=== PATIENT | female | born 1945 | race Caucasian/White ===

== ENCOUNTER → 2022-04-03 | Outpatient (CLI) | payer MEDICARE ==
[~2022-04-03] MED LIST: HYDACE5 PO; HYDCHL25; LOVA40; METF500; Norco 5-325 Ta1 EACH PO
[2022-04-03 10:36] LABS: BASOPHILS ABSOLUTE AUTO 0.06 K/mm3 (0.00-0.23); BASOPHILS PERCENT AUTO 1 % (0-2); EOSINOPHILS ABSOLUTE AUTO 0.26 K/mm3 (0.00-0.68); EOSINOPHILS PERCENT AUTO 3 % (0-6); Hematocrit 42.3 % (33.0-51.0); Hemoglobin 14.4 g/dL (11.5-16.0); IMMATURE GRAN ABSOLUTE AUTO 0.03 K/mm3 (0.00-0.10); IMMATURE GRAN PERCENT AUTO 0 % (0-1); LYMPHOCYTES ABSOLUTE AUTO 2.15 K/mm3 (0.84-5.20); LYMPHOCYTES PERCENT AUTO 25 % (21-46); MONOCYTES PERCENT AUTO 6 % (4-13); Mean Corpuscular HGB 31.6 pg (26.0-34.0); Mean Corpuscular Volume 93 fL (80-100); Mean Platelet Volume 9.1 fL (9.1-12.4); NEUTROPHILS ABSOLUTE AUTO 5.51 K/mm3 (1.96-9.15); NEUTROPHILS PERCENT AUTO 65 % (41-73); Platelet Count 298 K/mm3 (150-400); RDW Coefficient Variation 13.7 % (11.7-14.2); RDW Standard Deviation 46.5 fL (35.1-46.3); Red Blood Cell Count 4.56 M/mm3 (3.80-5.20); White Blood Cell Count 8.51 K/mm3 (4.00-11.30)
[2022-04-03 10:57] LABS: Albumin, Blood 3.7 g/dL (3.4-5.0); Albumin/Globulin Ratio 0.9 (0.8-1.8); Bilirubin, Total 0.4 mg/dL (0.1-1.0); Bun/Creatinine Ratio 18.7 (12.0-20.0); Calcium, Blood 8.8 mg/dL (8.5-10.1); Creatinine, Blood 0.91 mg/dL (0.40-1.00); Globulin, Blood 4.1 g/dL (2.2-4.0); Potassium, Blood 4.4 mmol/L (3.5-5.5); Total Protein, Blood 7.8 g/dL (6.4-8.2)
== END ==
LOC: LAB SHORT 10:28
PROVIDERS: Chiropractor
DX: R07.9 Chest pain, unspecified (principal)
CPT/HCPCS: 80053; 84484; 85025; 85379

== ENCOUNTER → 2025-03-15 | Outpatient (CLI) | payer MEDICARE ==
[2025-03-15 17:40] LABS: Adenovirus F 40/41 Not Detected (NOT DETECT); Astrovirus Not Detected (NOT DETECT); Campylobacter Sp Detected (NOT DETECT); Cryptosporidium Not Detected (NOT DETECT); Cyclospora Cayetanensis Not Detected (NOT DETECT); E. Coli O157 Not Detected (NOT DETECT); Entamoeba Histolytica Not Detected (NOT DETECT); Enteroaggregative E. coli-EAEC Not Detected (NOT DETECT); Enteropathogenic E. coli-EPEC Not Detected (NOT DETECT); Enterotoxigenic E. coli-ETEC Not Detected (NOT DETECT); Giardia Lamblia Not Detected (NOT DETECT); Norovirus GI/GII Not Detected (NOT DETECT); Plesiomonas Shigelloides Not Detected (NOT DETECT); Rotavirus A Not Detected (NOT DETECT); Salmonella Sp Not Detected (NOT DETECT); Sapovirus Not Detected (NOT DETECT); Shiga Toxin-prod E. coli-STEC Not Detected (NOT DETECT); Shigella/Enteroin E. coli-EIEC Not Detected (NOT DETECT); Vibrio Cholerae Not Detected (NOT DETECT); Vibrio Sp Not Detected (NOT DETECT); Yersinia Enterocolitica Not Detected (NOT DETECT)
== END ==
LOC: LAB 13:52 → LAB SHORT 13:52
PROVIDERS: Internal Medicine
DX: K52.9 Noninfective gastroenteritis and colitis, unspecified (principal)
CPT/HCPCS: 87507

== ENCOUNTER 2025-04-26 07:57 | Day surgery (SDC) | payer MEDICARE ==
[2025-04-05 14:18] VITALS: BP 165/96
[2025-04-26] VITALS (11 sets, daily range): BP systolic 106–186; BP diastolic 57–95
[~2025-04-26] VITALS: Ht 152.4 cm; Wt 61.1 kg
[~2025-04-26 07:57] MED LIST changes: +AMLO5 PO; +Acetaminophen 500 MG Tab PO SCH; +Aspir 8181 MG PO; +CeFAZolin Sodium 2,000 MG in NS 100 ML IV SCH; +Chlorhexidine Mouth Care 15 ML UDC MT SCH; +Lactated Ringer's 1,000 ML IV SCH; +METO25ER PO; +OxyCODONE HCL 10 MG TABCR PO SCH; +Ropivacaine 0.5% HCl/Pf 123.125 MG,EPINEPHrine HCL 0.25 MG,Ketorolac Tromethamine 15 MG... INFIL SCH; +Tranexamic Acid 100 ML IV SCH; +ZOCOR20 MG PO
--- NOTE | 2025-04-26 09:22 | NUR ---
History, Chart, Medications and Allergies reviewed before start of procedure. Pre-Op teaching done. Pt verbalizes understanding. Patient confirms NPO status and agrees with scheduled surgery. PT BELONGINGS BAG PLACED UNDER BED. PT GAVE GLASSES TO SPOUSE AT BS. DENTURE CUP LABELED AND GIVEN TO TRANSMISSION OPERATOR.
[2025-04-26] MEDS ORDERED: Midazolam HCl 1MG / ML 2ML Vial ONE (10:09)
[2025-04-26] MEDS ORDERED: ePHEDrine Sulfate 50 MG/ML 1ML Injection ONE (10:35)
[2025-04-26] MEDS ORDERED: propofoL 40 ML IV ONE ×2 (10:38→11:49)
[2025-04-26] MEDS ORDERED: FentaNYL Citrate 50 MCG/ML 2 ML Injection IV PRN ×3 (11:05)
[2025-04-26] MEDS ORDERED: HYDROmorphone HCl/Pf 1MG SYR IV PRN ×2 (11:05→11:20)
[2025-04-26] MEDS ORDERED: Ondansetron HCl 2 MG / ML 2ML Vial IV PRN ×2 (11:05→11:25)
[2025-04-26] MEDS ORDERED: DiphenhydrAMINE HCL 25 MG Cap PO PRN (11:20)
[2025-04-26] MEDS ORDERED: Promethazine HCl 25 MG Tab PO PRN (11:20)
[2025-04-26] MEDS ORDERED: Magnesium Hydroxide Conc 10 ML UDC PO PRN (11:25)
[2025-04-26] MEDS ORDERED: OxyCODONE HCL 5 MG TAB PO PRN ×2 (11:25)
[2025-04-26] MEDS ORDERED: Metoclopramide HCl 5MG / ML 2ML Vial IV PRN (11:25)
[2025-04-26] MEDS ORDERED: Prochlorperazine Edisylate 10 mg Vial IV PRN (11:30)
[2025-04-26] MEDS ORDERED: Bisacodyl 10 MG Supp PR PRN (11:30)
[2025-04-26] MEDS ORDERED: FentaNYL Citrate 50 MCG/ML 2 ML Injection ONE (11:32)
[2025-04-26] MEDS ORDERED: Lactated Ringer's 1,000 ML IV SCH (11:35)
[2025-04-26] MEDS ORDERED: Ketorolac Tromethamine 15mg Vial IV SCH (12:00)
[2025-04-26] MEDS ORDERED: Ketorolac Tromethamine 30mg Vial ONE (12:56)
--- NOTE | 2025-04-26 13:33 | NUR ---
PT ARRIVED TO UNIT FROM PACU AT APROX 1324. PT IS ABLE TO WIGGLE TOES AND MOVE FEET BUT HAS NO SENSATION UPON ARRIVAL. VSS.
[2025-04-26] MEDS ORDERED: Acetaminophen 500 MG Tab PO SCH (16:00)
[2025-04-26] MEDS ORDERED: ASPI81CH PO (16:12)
[2025-04-26] MEDS ORDERED: ACETAMINOPHEN500 MG PO (16:12)
[2025-04-26] MEDS ORDERED: OXAYDO5 M1 PO (16:13)
[2025-04-26] MEDS ORDERED: DOCU100 PO (16:13)
--- NOTE | 2025-04-26 16:43 | NUR ---
discharge s/p LINA. PT AMBULATED WELL WITH THERAPY. DENIES PAIN AT THIS TIME. TOLERATING DIET, ABLE TO VOID. ALL BELONGINGS WITH PATIENT. DAUGHTER IS PICKING UP PRESCRIPTIONS AT THIS TIME. ALL INSTRUCTIONS GONE OVER WITH PATIENT.
[2025-04-26] MEDS ORDERED: CeFAZolin Sodium 2,000 MG in NS 100 ML IV SCH (18:00)
[2025-04-26] MEDS ORDERED: Docusate Sodium 100 MG Cap PO SCH (21:00)
[2025-04-27] MEDS ORDERED: Aspirin 81 MG Chew PO SCH (09:00)
[2025-04-27] MEDS ORDERED: Metoprolol Succinate 25 MG TABCR PO SCH (09:00)
== END 2025-04-26 16:44 | disposition home or self-care (01) ==
LOC: ORSCMMR 07:57 → ORD 09:30 → ORSCMMR 09:30 → ORD 11:30 → SURS 13:10 → ORSCMMR 16:44 → SURS 16:44
PROVIDERS: Orthopaedic Surgery
PROC: 0SR90JA Replacement of Right Hip Joint with Synthetic Substitute, Uncemented, Open Approach (ICD-10-PCS; principal; 2025-04-26 09:30)
DX: M16.11 Unilateral primary osteoarthritis, right hip (principal); I10 Essential (primary) hypertension; I50.9 Heart failure, unspecified; Z79.899 Other long term (current) drug therapy
CPT/HCPCS: 72170; 97110; 97116; 97162; A9270; C1776; J0171; J0690; J0735; J1885; J2250; J2704; J2795; J3010; J7120

== ENCOUNTER → 2025-07-21 | Outpatient (CLI) | payer MEDICARE ==
[~2025-07-21] MED LIST changes: +ACETAMINOPHEN500 MG PO; +ASPI81CH PO; -Acetaminophen 500 MG Tab PO SCH; -CeFAZolin Sodium 2,000 MG in NS 100 ML IV SCH; -Chlorhexidine Mouth Care 15 ML UDC MT SCH; +DOCU100 PO; -Lactated Ringer's 1,000 ML IV SCH; +OXAYDO5 M1 PO; -OxyCODONE HCL 10 MG TABCR PO SCH; -Ropivacaine 0.5% HCl/Pf 123.125 MG,EPINEPHrine HCL 0.25 MG,Ketorolac Tromethamine 15 MG... INFIL SCH; -Tranexamic Acid 100 ML IV SCH
== END ==
LOC: LAB SHORT 16:25 → LAB 16:25
DX: M25.572 Pain in left ankle and joints of left foot (principal)
CPT/HCPCS: 84550